=== PATIENT | male | born 1960 | race African-American/Black ===

== ENCOUNTER 2023-07-14 17:00 | Outpatient (CLI) | payer OTHER | END 2023-07-14 17:01 | disposition home or self-care (01) | LOC: SLEEPLAB 17:00 | PROVIDERS: ATTEND Family Medicine | DX: G47.33 Obstructive sleep apnea (adult) (pediatric) (principal); R53.83 Other fatigue; R51.9 Headache, unspecified; E11.9 Type 2 diabetes mellitus without complications; E66.9 Obesity, unspecified; R06.83 Snoring; I10 Essential (primary) hypertension; I63.9 Cerebral infarction, unspecified; G47.10 Hypersomnia, unspecified; G47.00 Insomnia, unspecified; I49.3 Ventricular premature depolarization; Z68.32 Body mass index [BMI] 32.0-32.9, adult | CPT/HCPCS: 95810 ==